=== PATIENT | male | born 1965 | race Caucasian/White ===

== ENCOUNTER 2017-12-12 00:56 | Emergency (ER) | payer MEDICAID ==
[~2017-12-12] VITALS: Ht 162.6 cm; Wt 121.3 kg
[~2017-12-12 00:56] MED LIST: ALBU18HF2 IH; BENZ-49 PO; CEPH-571 PO; CYCL-1 PO; HYDR-569 PO; IBUP-1986 PO; LISI10TA4 PO; NEOM10DR45 OT; TRIA10.8
[2017-12-12] MEDS ORDERED: proparacaine 0.5% ophthalmic drops 15ml EACHEYE ONE (01:45)
[2017-12-12] MEDS ORDERED: gentamicin ophthalmic ointment 1 APPLIC TUBE EACHEYE ONE (02:20)
[2017-12-12] MEDS ORDERED: HYDROcodone/acetaminophen 10/325mg tab PO ONE (02:20)
[2017-12-12] MEDS ORDERED: GENOO OP (02:25)
[2017-12-12] MEDS ORDERED: HYDR-565 PO (02:25)
[2017-12-12 02:34] VITALS: BP 139/83
== END 2017-12-12 02:35 | disposition home or self-care (01) ==
LOC: ER 00:56
DX: S05.02XA Injury of conjunctiva and corneal abrasion without foreign body, left eye, initial encounter (principal); H16.133 Photokeratitis, bilateral; I10 Essential (primary) hypertension; F17.200 Nicotine dependence, unspecified, uncomplicated; F12.10 Cannabis abuse, uncomplicated; F15.10 Other stimulant abuse, uncomplicated; Z79.899 Other long term (current) drug therapy; X58.XXXA Exposure to other specified factors, initial encounter; Y93.89 Activity, other specified; Y92.89 Other specified places as the place of occurrence of the external cause; Y99.0 Civilian activity done for income or pay
CPT/HCPCS: 99284

== ENCOUNTER 2018-04-18 10:43 | Emergency (ER) | payer MEDICAID ==
[~2018-04-18] VITALS: Ht 162.6 cm; Wt 131.8 kg
[~2018-04-18 10:43] MED LIST changes: +GENOO OP; +HYDR-4383 PO; -HYDR-569 PO
[2018-04-18 11:23] LABS: BASOPHILS % (AUTO) 0.1 % (0-1); EOSINOPHILS % (AUTO) 0.2 % (0-6); HEMATOCRIT 51.1 % (42.0-52.0); HEMOGLOBIN 17.3 g/dl (14.0-17.9); LYMPHOCYTES # (AUTO) 0.4 X10'3 (1.1-4.8); LYMPHOCYTES % (AUTO) 4.7 % (21-51); MEAN CORPUSCULAR HEMOGLOBIN 29.7 PG (27.0-31.0); MEAN CORPUSCULAR HGB CONC 33.9 % (33.0-36.5); MEAN CORPUSCULAR VOLUME 87.5 FL (78-98); MEAN PLATELET VOLUME 9.9 FL (7.4-10.4); MONOCYTES # (AUTO) 0.7 X10'3 (0-0.9); MONOCYTES % (AUTO) 9.8 % (2-12); NEUTROPHILS # (AUTO) 6.5 X10'3 (1.8-7.7); NEUTROPHILS % (AUTO) 85.2 % (42-75); PLATELET COUNT 136 X10'3 (140-440); RED BLOOD COUNT 5.84 X10'6 (4.70-6.10); WHITE BLOOD COUNT 7.6 X10'3 (4.5-11.0)
[2018-04-18 11:37] LABS: PARTIAL THROMBOPLASTIN TIME 31 SECONDS (22-32); PROTHROMBIN TIME 10.4 SECONDS (9.0-12.0)
[2018-04-18 11:39] LABS: ALANINE AMINOTRANSFERASE 65 U/L (12-78); ALBUMIN 3.7 G/DL (3.4-5.0); ALBUMIN/GLOBULIN RATIO 0.9 (1.1-1.5); ALKALINE PHOSPHATASE 81 IU/L (46-116); ANION GAP 10 (8-16); ASPARTATE AMINO TRANSFERASE 33 U/L (10-37); BILIRUBIN,TOTAL 0.6 MG/DL (0.1-1.0); BLOOD UREA NITROGEN 13 MG/DL (7-18); BUN/CREATININE RATIO 13.3 (5.4-32.0); CALCIUM 8.5 MG/DL (8.5-10.1); CHLORIDE 94 MMOL/L (99-107); CREATININE 0.98 MG/DL (0.60-1.10); GLUCOSE 115 MG/DL (70-104); POTASSIUM 4.3 MMOL/L (3.5-5.1); SODIUM 129 MMOL/L (135-145); TOTAL CARBON DIOXIDE 24.6 MMOL/L (24-32); TOTAL PROTEIN 7.9 G/DL (6.4-8.2); eGFR 81 ML/MIN
[2018-04-18 11:54] VITALS: BP 150/93
[2018-04-18] MEDS ORDERED: TAM75C PO (13:09)
[2018-04-18] MEDS ORDERED: HYDR-4353 PO (13:14)
[2018-04-18] MEDS ORDERED: HYDROcodone/acetaminophen 10/325mg tab PO ONE (13:15)
== END 2018-04-18 13:32 | disposition home or self-care (01) ==
LOC: ER 10:44
DX: B34.9 Viral infection, unspecified (principal); R50.9 Fever, unspecified; I10 Essential (primary) hypertension; F12.90 Cannabis use, unspecified, uncomplicated; F15.90 Other stimulant use, unspecified, uncomplicated; Z79.899 Other long term (current) drug therapy
CPT/HCPCS: 36415; 71045; 80053; 83880; 84484; 85025; 85610; 85730; 87040; 93005; 99284

== ENCOUNTER → 2018-05-07 | Emergency (ER) | payer MEDICAID ==
[~2018-05-07] VITALS: Ht 162.6 cm; Wt 118.5 kg
[~2018-05-07] MED LIST changes: +AZIT250T2 PO; +HYDR-4353 PO; +azithromycin 250mg tablet PO ONE; +levoFLOXACIN-Levaquin 750MG/D5 150 ML IV STA
[2018-05-07 21:52] LABS: BASOPHILS # (AUTO) 0.1 X10'3 (0-0.2); BASOPHILS % (AUTO) 0.7 % (0-1); EOSINOPHILS # (AUTO) 0.1 X10'3 (0-0.9); HEMATOCRIT 49.2 % (42.0-52.0); HEMOGLOBIN 16.3 g/dl (14.0-17.9); LYMPHOCYTES # (AUTO) 2.7 X10'3 (1.1-4.8); LYMPHOCYTES % (AUTO) 28.1 % (21-51); MEAN CORPUSCULAR HEMOGLOBIN 29.2 PG (27.0-31.0); MEAN CORPUSCULAR VOLUME 88.4 FL (78-98); MEAN PLATELET VOLUME 10.1 FL (7.4-10.4); MONOCYTES # (AUTO) 0.7 X10'3 (0-0.9); MONOCYTES % (AUTO) 7.6 % (2-12); NEUTROPHILS # (AUTO) 6.1 X10'3 (1.8-7.7); NEUTROPHILS % (AUTO) 62.6 % (42-75); PLATELET COUNT 197 X10'3 (140-440); RED BLOOD COUNT 5.56 X10'6 (4.70-6.10); RED CELL DISTRIBUTION WIDTH 14.1 % (11.5-14.5); WHITE BLOOD COUNT 9.7 X10'3 (4.5-11.0)
[2018-05-07 22:13] VITALS: BP 155/91
[2018-05-07 22:19] LABS: PARTIAL THROMBOPLASTIN TIME 28 SECONDS (22-32)
[2018-05-07 22:49] LABS: ALANINE AMINOTRANSFERASE 53 U/L (12-78); ALBUMIN 3.4 G/DL (3.4-5.0); ALBUMIN/GLOBULIN RATIO 0.8 (1.1-1.5); ALKALINE PHOSPHATASE 88 IU/L (46-116); ANION GAP 11 (8-16); ASPARTATE AMINO TRANSFERASE 24 U/L (10-37); BILIRUBIN,TOTAL 0.3 MG/DL (0.1-1.0); BLOOD UREA NITROGEN 20 MG/DL (7-18); BUN/CREATININE RATIO 21.1 (5.4-32.0); CALCIUM 8.5 MG/DL (8.5-10.1); CHLORIDE 103 MMOL/L (99-107); CREATININE 0.95 MG/DL (0.60-1.10); GLUCOSE 127 MG/DL (70-104); POTASSIUM 3.9 MMOL/L (3.5-5.1); SODIUM 140 MMOL/L (135-145); TOTAL CARBON DIOXIDE 25.6 MMOL/L (24-32); TOTAL PROTEIN 7.5 G/DL (6.4-8.2); eGFR 84 ML/MIN
[2018-05-07 22:54] LABS: MAGNESIUM 2.1 MG/DL (1.5-2.4)
== END | disposition left against medical advice (07) ==
LOC: ER 20:31
DX: R05 Cough (principal); I10 Essential (primary) hypertension; F12.90 Cannabis use, unspecified, uncomplicated; F15.90 Other stimulant use, unspecified, uncomplicated; F17.200 Nicotine dependence, unspecified, uncomplicated; Z79.899 Other long term (current) drug therapy
CPT/HCPCS: 36415; 71045; 80053; 83605; 83735; 83880; 84145; 84484; 85025; 85610; 85730; 87040; 93005; 99284

== ENCOUNTER 2018-06-18 12:29 | Emergency (ER) | payer MEDICAID ==
[~2018-06-18] VITALS: Ht 162.6 cm; Wt 120.0 kg
[~2018-06-18 12:29] MED LIST changes: -AZIT250T2 PO; -HYDR-4353 PO; -azithromycin 250mg tablet PO ONE; -levoFLOXACIN-Levaquin 750MG/D5 150 ML IV STA
[2018-06-18] MEDS ORDERED: HYDROmorphone inj. 0.5 MG/0.5 ML DISP.SYRIN IV ONE (13:05)
[2018-06-18] MEDS ORDERED: ondansetron/PF 4mg/2ml inj IV ONE (13:05)
[2018-06-18] MEDS ORDERED: LIDOcaine Viscous 15ml cup TP ONE (13:10)
[2018-06-18] MEDS ORDERED: normal saline 1000ML IV soln IVB ONE (13:20)
[2018-06-18] MEDS ORDERED: bacitracin 15gm ointment TP ONE (13:30)
[2018-06-18] MEDS ORDERED: ketorolac trometh. 30mg/ml inj. IV ONE (13:30)
[2018-06-18 13:34] LABS: BASOPHILS # (AUTO) 0.1 X10'3 (0-0.2); BASOPHILS % (AUTO) 0.7 % (0-1); EOSINOPHILS # (AUTO) 0.1 X10'3 (0-0.9); EOSINOPHILS % (AUTO) 1.4 % (0-6); HEMATOCRIT 48.4 % (42.0-52.0); HEMOGLOBIN 16.1 g/dl (14.0-17.9); LYMPHOCYTES # (AUTO) 2.4 X10'3 (1.1-4.8); LYMPHOCYTES % (AUTO) 23.5 % (21-51); MEAN CORPUSCULAR HEMOGLOBIN 29.6 PG (27.0-31.0); MEAN CORPUSCULAR HGB CONC 33.2 g/dL (33.0-36.5); MEAN CORPUSCULAR VOLUME 88.9 FL (78-98); MEAN PLATELET VOLUME 9.7 FL (7.4-10.4); MONOCYTES # (AUTO) 0.9 X10'3 (0-0.9); MONOCYTES % (AUTO) 8.3 % (2-12); NEUTROPHILS # (AUTO) 6.8 X10'3 (1.8-7.7); NEUTROPHILS % (AUTO) 66.1 % (42-75); PLATELET COUNT 162 X10'3 (140-440); RED BLOOD COUNT 5.44 X10'6 (4.70-6.10); RED CELL DISTRIBUTION WIDTH 14.4 % (11.5-14.5); WHITE BLOOD COUNT 10.3 X10'3 (4.5-11.0)
[2018-06-18] MEDS ORDERED: normal saline 1000ml 1,000 ML IV ONE (13:35)
[2018-06-18 13:45] VITALS: BP 157/72
[2018-06-18 13:51] LABS: ALANINE AMINOTRANSFERASE 47 U/L (12-78); ALBUMIN 3.3 G/DL (3.4-5.0); ALBUMIN/GLOBULIN RATIO 0.9 (1.1-1.5); ALKALINE PHOSPHATASE 104 IU/L (46-116); ANION GAP 10 (8-16); ASPARTATE AMINO TRANSFERASE 26 U/L (10-37); BILIRUBIN,TOTAL 0.2 MG/DL (0.1-1.0); BLOOD UREA NITROGEN 15 MG/DL (7-18); CALCIUM 8.4 MG/DL (8.5-10.1); CHLORIDE 105 MMOL/L (99-107); CREATININE 0.88 MG/DL (0.60-1.10); GLUCOSE 96 MG/DL (70-104); POTASSIUM 4.3 MMOL/L (3.5-5.1); SODIUM 140 MMOL/L (135-145); TOTAL CARBON DIOXIDE 25.2 MMOL/L (24-32); eGFR > 90 ML/MIN
[2018-06-18] MEDS ORDERED: HYDR-3965 PO (13:59)
[2018-06-18] MEDS ORDERED: BACI28.42 TOP (13:59)
== END 2018-06-18 14:29 | disposition home or self-care (01) ==
LOC: ER 12:30
DX: T23.231A Burn of second degree of multiple right fingers (nail), not including thumb, initial encounter (principal); T20.06XA Burn of unspecified degree of forehead and cheek, initial encounter; S61.412A Laceration without foreign body of left hand, initial encounter; I10 Essential (primary) hypertension; F12.90 Cannabis use, unspecified, uncomplicated; F15.90 Other stimulant use, unspecified, uncomplicated; Z79.899 Other long term (current) drug therapy; X08.8XXA Exposure to other specified smoke, fire and flames, initial encounter; Y93.89 Activity, other specified; Y92.89 Other specified places as the place of occurrence of the external cause; Y99.9 Unspecified external cause status
CPT/HCPCS: 16020; 36415; 71045; 80053; 83735; 85025; 93005; 96374; 96375; 99284; J1170; J1885; J2405; J7030

== ENCOUNTER 2019-06-23 13:17 | Emergency (ER) | payer MEDICAID ==
[~2019-06-23 13:17] MED LIST changes: +BACI28.42 TOP
== END 2019-06-23 14:59 | disposition left against medical advice (07) ==
LOC: ER 13:18
DX: R06.02 Shortness of breath (principal); Z53.21 Procedure and treatment not carried out due to patient leaving prior to being seen by health care provider
CPT/HCPCS: 93005

== ENCOUNTER 2019-07-03 01:51 | Emergency (ER) | payer MEDICAID ==
[~2019-07-03] VITALS: Ht 162.6 cm; Wt 122.7 kg
[2019-07-03 01:56] VITALS: BP 156/109
[2019-07-03] MEDS ORDERED: azithromycin 250mg tablet PO ONE (02:20)
[2019-07-03] MEDS ORDERED: AZIT-63 PO (02:37)
== END 2019-07-03 02:59 | disposition home or self-care (01) ==
LOC: ER 01:51
DX: J06.9 Acute upper respiratory infection, unspecified (principal); I10 Essential (primary) hypertension; F12.90 Cannabis use, unspecified, uncomplicated; F15.90 Other stimulant use, unspecified, uncomplicated; Z79.2 Long term (current) use of antibiotics; Z79.899 Other long term (current) drug therapy
CPT/HCPCS: 93005; 99283

== ENCOUNTER 2019-07-14 02:45 | Emergency (ER) | payer MEDICAID ==
[~2019-07-14] VITALS: Ht 162.6 cm; Wt 12.3 kg
[~2019-07-14 02:45] MED LIST changes: +AZIT-63 PO
[2019-07-14] MEDS ORDERED: PRED20TA PO (03:04)
[2019-07-14] MEDS ORDERED: DOXY-1 PO (03:04)
[2019-07-14] MEDS ORDERED: ALBU8.5H8 INH (03:04)
[2019-07-14 03:11] VITALS: BP 125/94
== END 2019-07-14 03:15 | disposition home or self-care (01) ==
LOC: ER 02:47
DX: J98.8 Other specified respiratory disorders (principal); I10 Essential (primary) hypertension; F12.90 Cannabis use, unspecified, uncomplicated; F15.90 Other stimulant use, unspecified, uncomplicated; F17.200 Nicotine dependence, unspecified, uncomplicated; Z79.899 Other long term (current) drug therapy
CPT/HCPCS: 99283

== ENCOUNTER 2019-09-01 02:01 | Emergency (ER) | payer MEDICAID ==
[~2019-09-01] VITALS: Ht 160 cm; Wt 118.2 kg
[~2019-09-01 02:01] MED LIST changes: +ALBU8.5H8 INH; -AZIT-63 PO
[2019-09-01 02:08] VITALS: BP 183/113
[2019-09-01] MEDS ORDERED: famotidine 20mg tablet PO ONE (03:05)
[2019-09-01] MEDS ORDERED: dexamethasone 4mg tablet PO ONE (03:05)
[2019-09-01] MEDS ORDERED: PRED20TA PO (03:17)
== END 2019-09-01 04:22 | disposition home or self-care (01) ==
LOC: ER 02:02
DX: L98.8 Other specified disorders of the skin and subcutaneous tissue (principal); L29.9 Pruritus, unspecified; F12.90 Cannabis use, unspecified, uncomplicated; F15.90 Other stimulant use, unspecified, uncomplicated; I10 Essential (primary) hypertension; Z79.899 Other long term (current) drug therapy
CPT/HCPCS: 99283

== ENCOUNTER 2020-05-10 18:07 | Emergency (ER) | payer MEDICAID ==
[~2020-05-10] VITALS: Ht 160 cm; Wt 109.1 kg
[2020-05-10] MEDS ORDERED: CEPH-572 PO (18:41)
[2020-05-10] MEDS ORDERED: SULF1TAB49 PO (18:41)
== END 2020-05-10 19:08 | disposition home or self-care (01) ==
LOC: ER 18:08
DX: J06.9 Acute upper respiratory infection, unspecified (principal); Z20.828 Contact with and (suspected) exposure to other viral communicable diseases; L02.413 Cutaneous abscess of right upper limb; I10 Essential (primary) hypertension; J45.909 Unspecified asthma, uncomplicated; F17.200 Nicotine dependence, unspecified, uncomplicated; F12.90 Cannabis use, unspecified, uncomplicated; F15.90 Other stimulant use, unspecified, uncomplicated; Z79.2 Long term (current) use of antibiotics; Z79.899 Other long term (current) drug therapy
CPT/HCPCS: 36415; 87635; 99283

== ENCOUNTER 2021-09-10 13:46 | Inpatient (IN) | payer MEDICAID ==
[~2021-09-10] VITALS: Ht 160 cm; Wt 115.9 kg
[~2021-09-10 13:46] MED LIST changes: +ALBU8.5H17 INH; -ALBU8.5H8 INH; +LISI10TA27 PO; -LISI10TA4 PO
[2021-09-10] MEDS ORDERED: ipratropium/albuterol 3ml nebule NEB ONE (14:15)
[2021-09-10] MEDS ORDERED: vancomycin/NS 1 GM ADD-VANTAGE 250 ML IV ONE (14:15)
[2021-09-10] MEDS ORDERED: normal saline 1000ML IV soln IVB ONE (14:15)
[2021-09-10] MEDS ORDERED: piperacillin/tazo 3.375gm/50ml 50 ML IV ONE (14:15)
[2021-09-10 14:49] LABS: BASOPHILS % (AUTO) 0.2 % (0-1); EOSINOPHILS % (AUTO) 0.1 % (0-6); HEMATOCRIT 50.1 % (42.0-52.0); HEMOGLOBIN 16.9 g/dl (14.0-17.9); LYMPHOCYTES % (AUTO) 6.7 % (21-51); MEAN CORPUSCULAR HEMOGLOBIN 29.7 PG (27.0-31.0); MEAN CORPUSCULAR HGB CONC 33.7 g/dL (33.0-36.5); MEAN PLATELET VOLUME 10.1 FL (7.4-10.4); MONOCYTES # (AUTO) 1.8 X10'3 (0-0.9); NEUTROPHILS # (AUTO) 12.5 X10'3 (1.8-7.7); PLATELET COUNT 134 X10'3 (140-440); RED BLOOD COUNT 5.69 X10'6 (4.70-6.10); RED CELL DISTRIBUTION WIDTH 14.1 % (11.5-14.5); WHITE BLOOD COUNT 15.4 X10'3 (4.5-11.0)
[2021-09-10 14:59] LABS: ABG BASE EXCESS 3.1 mmol/L (-2.0-2.0); ABG HCO3 25.5 mmol/L (22.0-26.0); ABG OXYGEN SATURATION 94.2 % (94-97); ABG PO2 (T) 62.7 mmHg (75.0-100.0); ALLEN'S TEST POSITIVE; FCOHb 1.4 % (0.0-3.9); FLOW 4 L/min; FMetHb 0.1 % (0.0-1.5); FO2Hb 92.8 % (94-97); TOTAL HEMOGLOBIN 16.9 G/dl (14.0-18.0)
--- NOTE | 2021-09-10 15:00 | NUR ---
PATIENT GOT UP,WANTED TO LEAVE THE HOSPITAL.
[2021-09-10 15:08] LABS: ALANINE AMINOTRANSFERASE 34 U/L (12-78); ALBUMIN 2.5 G/DL (3.4-5.0); ALBUMIN/GLOBULIN RATIO 0.5 (1.1-1.5); ALKALINE PHOSPHATASE 74 IU/L (46-116); ANION GAP 7 (8-16); ASPARTATE AMINO TRANSFERASE 34 U/L (10-37); BILIRUBIN,TOTAL 0.8 MG/DL (0.1-1.0); BLOOD UREA NITROGEN 18 MG/DL (7-18); CHLORIDE 87 MMOL/L (99-107); POTASSIUM 4.9 MMOL/L (3.5-5.1); TOTAL CARBON DIOXIDE 25.2 MMOL/L (24-32); TOTAL PROTEIN 7.8 G/DL (6.4-8.2); eGFR 63 ML/MIN
[2021-09-10 15:11] LABS: APTT 27 SECONDS (22-32)
[2021-09-10 15:16] LABS: GLUCOSE 491 MG/DL (70-104); SODIUM 119 MMOL/L (135-145)
[2021-09-10] MEDS ORDERED: azithromycin/NS 500mg/250ml 250 ML IV ONE (15:30)
--- NOTE | 2021-09-10 15:34 | NUR ---
PATIENT TO CT.
--- NOTE | 2021-09-10 15:49 | NUR ---
PT BACK FROM CT.
[2021-09-10] MEDS ORDERED: insulin Lispro (HumaLOG) vial - multi-dose SQ SCH (16:40)
[2021-09-10] MEDS ORDERED: insulin regular, human 10 units/0.1 ml syringe SQ ONE ×2 (16:40→19:45)
[2021-09-10] MEDS ORDERED: NO HOME MEDS (17:00)
--- NOTE | 2021-09-10 17:00 | NUR ---
patient anxious,no prn per Dr. Agrawal.
--- NOTE | 2021-09-10 17:34 | NUR ---
PATIENT VOIDED ON THE BED.BEDDINGS CHANGED.
[2021-09-10] MEDS ORDERED: acetaminophen 325mg tablet PO PRN (18:35)
[2021-09-10] MEDS ORDERED: ipratropium/albuterol 3ml nebule NEB PRN (18:35)
[2021-09-10] MEDS ORDERED: potassium CL 10mEq/100ml bag 100 ML IV PRN (18:35)
[2021-09-10] MEDS ORDERED: mag hydrox/Alum hydrox/simeth 30ml oral suspension PO PRN (18:35)
[2021-09-10] MEDS ORDERED: albuterol 2.5 MG/3 ML nebule NEB PRN (18:35)
[2021-09-10] MEDS ORDERED: POTASSIUM BICARB 20meq eff tab 20 MEQ TABLET.EFF PO PRN ×2 (18:35)
[2021-09-10] MEDS ORDERED: magnesium 2GM in 50ml NS 50 ML IV PRN (18:35)
[2021-09-10] MEDS ORDERED: MESSAGE TO PHARMACY PO ONE (18:35)
[2021-09-10] MEDS ORDERED: glucagon, human recombinant 1mg kit SUBCUT PRN (18:35)
[2021-09-10] MEDS ORDERED: dextrose 50%-water 50ml dispensing syringe IV PRN ×2 (18:35)
[2021-09-10] MEDS ORDERED: PERFLUTREN PROTEIN-A MICROSPHR (Optison) 0.22 MG/ML 3ML VIAL IV ONE (18:35)
[2021-09-10] MEDS ORDERED: magnesium 4gm in 100ml NS 100 ML IV PRN (18:35)
[2021-09-10] MEDS ORDERED: HYDROcodone/acetaminophen 10/325mg tab PO PRN (18:35)
[2021-09-10] MEDS ORDERED: ondansetron/PF 4mg/2ml inj IV PRN (18:35)
[2021-09-10] MEDS ORDERED: HYDROcodone/acetaminophen 5mg/325mg tablet PO PRN (18:35)
[2021-09-10] MEDS ORDERED: DEXTROSE 15 GM of carb/4 tabs (each vial/BOTTLE has 4 tablets) PO PRN ×2 (18:35)
[2021-09-10 19:01] LABS: HEMOGLOBIN A1C 10.8 % (4.5-6.2)
[2021-09-10 19:21] LABS: ALBUMIN 2.2 G/DL (3.4-5.0); ANION GAP 4 (8-16); BLOOD UREA NITROGEN 19 MG/DL (7-18); BUN/CREATININE RATIO 17.3 (5.4-32.0); CALCIUM 7.7 MG/DL (8.5-10.1); CHLORIDE 91 MMOL/L (99-107); GLUCOSE 388 MG/DL (70-104); POTASSIUM 4.6 MMOL/L (3.5-5.1); SODIUM 121 MMOL/L (135-145); TOTAL CARBON DIOXIDE 26.1 MMOL/L (24-32); eGFR 70 ML/MIN
[2021-09-10] MEDS: docusate sod 100mg capsule PO SCH (20:00)
[2021-09-10] MEDS: K and/or MAG REPLACEMENT MC SCH (20:00)
[2021-09-10] MEDS: nicotine 21mg patch - 24 hr TD SCH (20:18)
[2021-09-10] MEDS: normal saline 1000ml 1,000 ML IV SCH (20:21)
[2021-09-10] MEDS: methylPREDNISolone sod succ 125mg/2ml vial IV SCH (20:37)
[2021-09-10] MEDS: enoxaparin 40mg/0.4ml syringe SQ SCH (21:04)
--- NOTE | 2021-09-10 21:40 | NUR ---
PT GIVEN TYLENOL FOR 102.2 TEMP. JUST RECHECKED TEMP AFTER 30MIN, STILL 102.2. FLOOR NURSE NOTIFIED.
--- NOTE | 2021-09-10 22:00 | NUR ---
Patient in room PCU 3015. I have received report from pete GONZALEZ from ED and had the opportunity to ask questions and assume patient care.
[2021-09-10 22:10] VITALS: BP 110/72
[2021-09-10] MEDS: insulin glargine (Lantus) pen - multi-dose SQ SCH (22:57)
[2021-09-10 23:00] VITALS: BP 116/60
[2021-09-10] MEDS: insulin Lispro (HumaLOG) vial - multi-dose SQ SCH (23:00)
[2021-09-11] VITALS (10 sets, daily range): BP systolic 109–139; BP diastolic 52–82
[2021-09-11] MEDS: piperacillin/tazo 4.5gm/100ml 100 ML IV SCH ×3 (00:11→16:00)
[2021-09-11] MEDS: methylPREDNISolone sod succ 125mg/2ml vial IV SCH ×4 (00:11→22:58)
[2021-09-11] MEDS ORDERED: diltiazem 5mg/ml 5ml inj. IV ONE ×2 (02:25→03:25)
[2021-09-11] MEDS ORDERED: diltiazem 30mg tablet PO ONE (03:25)
[2021-09-11] MEDS: vancomycin/NS 1 GM ADD-VANTAGE 250 ML IV SCH ×2 (03:54→22:31)
[2021-09-11] MEDS: normal saline 1000ml 1,000 ML IV SCH ×2 (04:35→15:28)
--- NOTE | 2021-09-11 04:51 | NUR ---
Received pt from the ER at 2210. Kari LEWIS received report from ER nurse. Patient is diaphoretic, temp 99.9. Sugar is 327. BP 136/64 HR 98.
--- NOTE | 2021-09-11 05:14 | NUR ---
Called Dr Hayes regarding bloody mucus, Pt in Afib with RVR ranging from 150-190s blood pressures q1 hr 117/62
--- NOTE | 2021-09-11 05:17 | NUR ---
Discussed with Dr harris regarding pt sustaining rhythm a fib w/ RVR got second dose of IV Cardizem 10 mg and gave PO Cardizem 30 mg one time dose. Patient still in AFib with rate in 150s-170.
[2021-09-11] MEDS ORDERED: metoprolol succinate 25mg (24-HOUR) SR. Tablet PO ONE (05:25)
--- NOTE | 2021-09-11 05:38 | NUR ---
Called Dr. harris again about the patient HR ranging from 150-170s when patient sat up it spiked to 190s. Abigail ordered 25 mg Metoprol. Patient is alert and oriented. Still diaphoretic, extremities are warm to the touch. Temp 97.7. Bp 116/65. No more bloody sputum, mucus membranes dry. Patient on tele and coutinuous o2 been on 8L sense arriving to the floor stats 90-94. q30 min vitals. Patient does state he feels "very bad". Addendum: 09/11/21 at 0638 by Lena Lebron RN Resp 25-35
--- NOTE | 2021-09-11 06:48 | NUR ---
Problems reprioritized. Patient report given, questions answered & plan of care reviewed with Lena GONZALEZ.
[2021-09-11] MEDS: K and/or MAG REPLACEMENT MC SCH ×2 (08:00→20:00)
[2021-09-11] MEDS: docusate sod 100mg capsule PO SCH ×2 (08:00→20:24)
[2021-09-11 08:18] LABS: BASOPHILS % (AUTO) 0.1 % (0-1); EOSINOPHILS % (AUTO) 0 % (0-6); HEMATOCRIT 48.3 % (42.0-52.0); HEMOGLOBIN 16.2 g/dl (14.0-17.9); LYMPHOCYTES # (AUTO) 0.9 X10'3 (1.1-4.8); LYMPHOCYTES % (AUTO) 6.1 % (21-51); MEAN CORPUSCULAR HEMOGLOBIN 29.6 PG (27.0-31.0); MEAN CORPUSCULAR HGB CONC 33.5 g/dL (33.0-36.5); MEAN CORPUSCULAR VOLUME 88.4 FL (78-98); MEAN PLATELET VOLUME 11.1 FL (7.4-10.4); MONOCYTES # (AUTO) 0.4 X10'3 (0-0.9); MONOCYTES % (AUTO) 2.7 % (2-12); NEUTROPHILS # (AUTO) 13.2 X10'3 (1.8-7.7); NEUTROPHILS % (AUTO) 91.1 % (42-75); PLATELET COUNT 133 X10'3 (140-440); RED BLOOD COUNT 5.46 X10'6 (4.70-6.10); RED CELL DISTRIBUTION WIDTH 13.6 % (11.5-14.5); WHITE BLOOD COUNT 14.5 X10'3 (4.5-11.0)
[2021-09-11] MEDS: nicotine 21mg patch - 24 hr TD SCH (08:58)
--- NOTE | 2021-09-11 09:44 | NUR ---
Diabetes consult: Pt admitted w/ Sepsis, PNA, and COPD exacerbation per EMR. Currently on Clear liquid diet pending PO, recommend advancing to Carb control diet. Pt w/ new onset DM per MD note, A1c 10.8. Provided pt w/ written and verbal DM ed w/ RD contact info. Limited nutrition interventions at this time, will continue to monitor. Recs: 1. Advance to Carb control diet 2. Monitor need for additional protein 3. Bowel care per rx 4. Scaled wts Addendum: 09/11/21 at [address] Amended: Links added.
[2021-09-11] MEDS ORDERED: metoprolol tartrate 1mg/ml inj IV ONE (09:45)
[2021-09-11] MEDS ORDERED: metoprolol tartrate 50mg tablet PO ONE (10:15)
[2021-09-11 11:41] LABS: ALANINE AMINOTRANSFERASE 35 U/L (12-78); ALBUMIN/GLOBULIN RATIO 0.4 (1.1-1.5); ALKALINE PHOSPHATASE 67 IU/L (46-116); ANION GAP 11 (8-16); ASPARTATE AMINO TRANSFERASE 41 U/L (10-37); BILIRUBIN,TOTAL 0.6 MG/DL (0.1-1.0); BLOOD UREA NITROGEN 26 MG/DL (7-18); BUN/CREATININE RATIO 23.9 (5.4-32.0); CALCIUM 7.6 MG/DL (8.5-10.1); CHLORIDE 90 MMOL/L (99-107); CHOL/HDL RATIO 12.6 (0.00-4.99); CHOLESTEROL 126 MG/DL (0-200); CREATININE 1.09 MG/DL (0.60-1.10); GLUCOSE 427 MG/DL (70-104); HDL CHOLESTEROL 10 MG/DL (35-60); LDL CHOLESTEROL 64 MG/DL (50-100); MAGNESIUM 2.4 MG/DL (1.5-2.4); POTASSIUM 4.7 MMOL/L (3.5-5.1); SODIUM 123 MMOL/L (135-145); TOTAL CARBON DIOXIDE 21.8 MMOL/L (24-32); TOTAL PROTEIN 6.8 G/DL (6.4-8.2); TRIGLYCERIDES 189 MG/DL (20-135); eGFR 70 ML/MIN
[2021-09-11] MEDS: amiodarone/D5 360MG/200ML BAG 200 ML IV SCH ×3 (11:45→22:57)
[2021-09-11] MEDS ORDERED: amiodarone 150mg/dext, iso-os 100 ML IV ONE ×2 (11:45→19:25)
[2021-09-11] MEDS: insulin Lispro (HumaLOG) vial - multi-dose SQ SCH ×2 (14:34→19:39)
[2021-09-11] MEDS: enoxaparin 40mg/0.4ml syringe SQ SCH (20:24)
[2021-09-11] MEDS: insulin glargine (Lantus) pen - multi-dose SQ SCH (20:34)
[2021-09-11] MEDS ORDERED: amiodarone 200mg tablet PO ONE (21:50)
--- NOTE | 2021-09-11 22:59 | NUR ---
0000 dose of solu-medrol not given because 1600 was not given until 2300. 1600 dose of zosyn not given due to lack of iv access.
[2021-09-11] MEDS ORDERED: vancomycin/NS 1 GM ADD-VANTAGE 250 ML IV SCH (23:05)
--- NOTE | 2021-09-12 00:31 | NUR ---
Paged Dr. Hayes at 0030 regarding medication questions. Patient has one line and unable to obtain second. Patient is afib rvr and in need of amio drip but also has positive blood cultures and needs iv antibx. Per physician, given iv antibx first wait to give amio. patient did receive the 150mg bolus before loss of access and 200 mg p.o amiodorone.
[2021-09-12] MEDS: piperacillin/tazo 4.5gm/100ml 100 ML IV SCH ×4 (00:36→23:40)
[2021-09-12] MEDS: normal saline 1000ml 1,000 ML IV SCH ×3 (00:41→21:28)
[2021-09-12 02:00] VITALS: BP 107/80
[2021-09-12] MEDS: amiodarone/D5 360MG/200ML BAG 200 ML IV SCH ×4 (05:57→23:52)
--- NOTE | 2021-09-12 06:30 | NUR ---
Upon bedside report this morning, patient is very emotional and states he has to leave the hospital. Says his mother is 83 and has dementia. She lives with him and he takes care of her. He has had a family friend taking care of her since he was admitted, but that person can no longer take care of her as of today (per phone conversation) Myself and his night nurse Ana told him how unsafe it is to leave, and that he needs to take care of himself first, or he will not be able to take care of his mom. Patient is emotional and states that he understands he is very sick and should not leave, but that he has no other choice. paged - waiting for call back.
--- NOTE | 2021-09-12 06:38 | NUR ---
PAGER ID: [phone] MESSAGE: Alcides Holly: Patient is trying to leave AMA - Says his mom has dementia and he has no one to take care of her. Heart rate is in the 150s [facility] 5408
--- NOTE | 2021-09-12 06:38 | NUR ---
PICC Nurse paged: [phone] Alcides Holly: Patient needs a PICC or possible extended line. Multiple nurses tried to get IV even with vein ultrasound and were not successful. Need more access for multiple IV meds
--- NOTE | 2021-09-12 06:38 | NUR ---
Patient in room PCU 3015. I have received report from Ana GONZALEZ and had the opportunity to ask questions and assume patient care.
[2021-09-12 07:00] VITALS: BP 125/89
--- NOTE | 2021-09-12 07:12 | NUR ---
[employer] consult ordered per protocol (charge nurse agreed) STAT.
[2021-09-12] MEDS: K and/or MAG REPLACEMENT MC SCH ×2 (08:00→20:00)
[2021-09-12 09:00] LABS: BASOPHILS % (AUTO) 0.2 % (0-1); EOSINOPHILS % (AUTO) 0.1 % (0-6); HEMATOCRIT 47.7 % (42.0-52.0); HEMOGLOBIN 15.7 g/dl (14.0-17.9); LYMPHOCYTES # (AUTO) 1.3 X10'3 (1.1-4.8); LYMPHOCYTES % (AUTO) 7.3 % (21-51); MEAN CORPUSCULAR HEMOGLOBIN 29.4 PG (27.0-31.0); MEAN CORPUSCULAR VOLUME 89.1 FL (78-98); MEAN PLATELET VOLUME 11.8 FL (7.4-10.4); MONOCYTES # (AUTO) 0.8 X10'3 (0-0.9); MONOCYTES % (AUTO) 4.3 % (2-12); NEUTROPHILS # (AUTO) 16.1 X10'3 (1.8-7.7); NEUTROPHILS % (AUTO) 88.1 % (42-75); PLATELET COUNT 152 X10'3 (140-440); RED BLOOD COUNT 5.35 X10'6 (4.70-6.10); RED CELL DISTRIBUTION WIDTH 14.1 % (11.5-14.5); WHITE BLOOD COUNT 18.3 X10'3 (4.5-11.0)
[2021-09-12] MEDS: nicotine 21mg patch - 24 hr TD SCH (09:04)
[2021-09-12] MEDS: docusate sod 100mg capsule PO SCH ×2 (09:04→21:27)
[2021-09-12] MEDS: methylPREDNISolone sod succ 125mg/2ml vial IV SCH ×3 (09:05→23:40)
[2021-09-12 09:46] LABS: ALANINE AMINOTRANSFERASE 37 U/L (12-78); ALBUMIN 1.8 G/DL (3.4-5.0); ALBUMIN/GLOBULIN RATIO 0.4 (1.1-1.5); ALKALINE PHOSPHATASE 74 IU/L (46-116); ANION GAP 8 (8-16); BILIRUBIN,TOTAL 0.6 MG/DL (0.1-1.0); BLOOD UREA NITROGEN 27 MG/DL (7-18); BUN/CREATININE RATIO 29.3 (5.4-32.0); CALCIUM 7.7 MG/DL (8.5-10.1); CHLORIDE 93 MMOL/L (99-107); CREATININE 0.92 MG/DL (0.60-1.10); GLUCOSE 431 MG/DL (70-104); MAGNESIUM 2.2 MG/DL (1.5-2.4); SODIUM 124 MMOL/L (135-145); TOTAL CARBON DIOXIDE 23.4 MMOL/L (24-32); TOTAL PROTEIN 6.5 G/DL (6.4-8.2); eGFR 86 ML/MIN
[2021-09-12 09:48] LABS: ASPARTATE AMINO TRANSFERASE 50 U/L (10-37)
[2021-09-12] MEDS ORDERED: digoxin 250mcg/ml 2ml ampule IV ONE ×2 (10:05→17:00)
--- NOTE | 2021-09-12 10:15 | NUR ---
Dr dumont at bedside. Verbal order as follows: Coreg 12.5mg PO BID, Digoxin 0.25mg IV now and repeat in 6 hours (1935), Amiodorone 200mg PO BID x 2 weeks. Orders put in via RN
[2021-09-12] MEDS: insulin Lispro (HumaLOG) vial - multi-dose SQ SCH ×4 (10:46→21:17)
[2021-09-12] MEDS: amiodarone 200mg tablet PO SCH ×2 (10:57→21:27)
[2021-09-12 11:00] VITALS: BP 80/59
[2021-09-12] MEDS ORDERED: ondansetron 4mg rapidly disintigrating tab PO PRN (11:25)
[2021-09-12] MEDS ORDERED: metoprolol tartrate 1mg/ml inj IV STA (14:49)
[2021-09-12 15:00] VITALS: BP 130/69
[2021-09-12] MEDS ORDERED: MESSAGE TO NURSING IV ONE (15:30)
[2021-09-12 18:00] VITALS: BP 148/96
[2021-09-12] MEDS ORDERED: carVEDilol 12.5mg tablet PO ONE (18:55)
[2021-09-12] MEDS ORDERED: carVEDilol 12.5mg tablet PO SCH (20:00)
[2021-09-12] MEDS: insulin glargine (Lantus) pen - multi-dose SQ SCH (21:17)
[2021-09-12] MEDS: enoxaparin 40mg/0.4ml syringe SQ SCH (21:27)
[2021-09-12] MEDS: apixaban 5mg tablet PO SCH (21:28)
[2021-09-12 22:00] VITALS: BP 130/74
[2021-09-12] MEDS ORDERED: VANCOmycin 1250MG/NS 250ml Bag 250 ML IV SCH (23:00)
[2021-09-12] MEDS: carVEDilol 12.5mg tablet PO SCH (23:40)
[2021-09-13 02:22] VITALS: BP 91/70
[2021-09-13 04:09] LABS: BASOPHILS % (AUTO) 0.1 % (0-1); EOSINOPHILS % (AUTO) 0.1 % (0-6); HEMATOCRIT 41.6 % (42.0-52.0); HEMOGLOBIN 13.7 g/dl (14.0-17.9); LYMPHOCYTES # (AUTO) 1.3 X10'3 (1.1-4.8); MEAN CORPUSCULAR HEMOGLOBIN 28.9 PG (27.0-31.0); MEAN CORPUSCULAR VOLUME 87.4 FL (78-98); MEAN PLATELET VOLUME 10.7 FL (7.4-10.4); MONOCYTES # (AUTO) 0.8 X10'3 (0-0.9); MONOCYTES % (AUTO) 4.9 % (2-12); NEUTROPHILS # (AUTO) 14.1 X10'3 (1.8-7.7); NEUTROPHILS % (AUTO) 86.9 % (42-75); PLATELET COUNT 177 X10'3 (140-440); RED BLOOD COUNT 4.76 X10'6 (4.70-6.10); RED CELL DISTRIBUTION WIDTH 14.3 % (11.5-14.5); WHITE BLOOD COUNT 16.2 X10'3 (4.5-11.0)
[2021-09-13 04:34] LABS: ALANINE AMINOTRANSFERASE 40 U/L (12-78); ALBUMIN 1.7 G/DL (3.4-5.0); ALBUMIN/GLOBULIN RATIO 0.4 (1.1-1.5); ALKALINE PHOSPHATASE 74 IU/L (46-116); ANION GAP 4 (8-16); BILIRUBIN,TOTAL 0.5 MG/DL (0.1-1.0); BLOOD UREA NITROGEN 27 MG/DL (7-18); CALCIUM 7.4 MG/DL (8.5-10.1); CHLORIDE 102 MMOL/L (99-107); GLUCOSE 122 MG/DL (70-104); SODIUM 133 MMOL/L (135-145); TOTAL PROTEIN 5.6 G/DL (6.4-8.2); eGFR 88 ML/MIN
[2021-09-13 04:39] LABS: ASPARTATE AMINO TRANSFERASE 45 U/L (10-37); POTASSIUM 4.6 MMOL/L (3.5-5.1)
[2021-09-13 05:07] LABS: LARGE PLATELETS FEW; PLATELET ESTIMATE NORMAL
[2021-09-13 06:00] VITALS: BP 92/75
[2021-09-13 07:00] VITALS: BP 88/62
[2021-09-13] MEDS: K and/or MAG REPLACEMENT MC SCH (08:00)
[2021-09-13] MEDS: apixaban 5mg tablet PO SCH (08:41)
[2021-09-13] MEDS: piperacillin/tazo 4.5gm/100ml 100 ML IV SCH (08:41)
[2021-09-13] MEDS: methylPREDNISolone sod succ 125mg/2ml vial IV SCH (08:41)
[2021-09-13] MEDS: docusate sod 100mg capsule PO SCH (08:41)
[2021-09-13] MEDS: amiodarone 200mg tablet PO SCH (08:41)
[2021-09-13] MEDS: carVEDilol 12.5mg tablet PO SCH (08:42)
[2021-09-13] MEDS: nicotine 21mg patch - 24 hr TD SCH (08:43)
[2021-09-13] MEDS: insulin Lispro (HumaLOG) vial - multi-dose SQ SCH (09:04)
--- NOTE | 2021-09-13 09:34 | NUR ---
PAGER ID: [phone] MESSAGE: [phone] Alcides Holly: Patients Lalo recinos is about done. Do you want me to start another at the 0.5mg/min? Didn't know what the plan was. Thanks! Malika SCHULTZ
[2021-09-13 11:00] VITALS: BP 107/61
[2021-09-13] MEDS ORDERED: NICO-687 TD (13:59)
[2021-09-13] MEDS ORDERED: ATOR20TA66 PO (14:00)
[2021-09-13] MEDS ORDERED: ALBU8.5H17 INH (14:00)
[2021-09-13] MEDS ORDERED: INSU100I31 SQ (14:00)
[2021-09-13] MEDS ORDERED: PRED20TA PO (14:00)
[2021-09-13] MEDS ORDERED: APIX5TAB3 PO (14:00)
[2021-09-13] MEDS ORDERED: NEED-136 (14:00)
[2021-09-13] MEDS ORDERED: AMOX-580 PO (14:00)
[2021-09-13] MEDS ORDERED: AMIO200T67 PO (14:00)
[2021-09-13] MEDS ORDERED: CARV-50 PO (14:00)
--- NOTE | 2021-09-13 18:58 | NUR ---
Discharge instructions reviewed and questions answered. Education given on the importance of checking blood sugar, and patient was walked through how to take his blood sugar. IVs removed from right upper arm and left AC, catheters intact. Patient pushed down to lobby in wheel chair and [facility]
[2021-09-14] MEDS ORDERED: MESSAGE TO NURSING IV ONE (10:30)
== END 2021-09-13 15:00 | disposition home or self-care (01) | DRG 720 ==
LOC: ER 13:47 → ED HOLD 18:42 → UNDOADMIN 18:42 → PCU 3S 22:10
PROVIDERS: ADMIT Family Medicine; ATTEND Family Medicine
PROC: 5A0935A Assistance with Respiratory Ventilation, Less than 24 Consecutive Hours, High Flow/Velocity Cannula (ICD-10-PCS; principal; 2021-09-10)
PROC: 5A0935A Assistance with Respiratory Ventilation, Less than 24 Consecutive Hours, High Flow/Velocity Cannula (ICD-10-PCS; 2021-09-11)
DX: A41.9 Sepsis, unspecified organism (principal); J96.00 Acute respiratory failure, unspecified whether with hypoxia or hypercapnia; N17.0 Acute kidney failure with tubular necrosis; I50.30 Unspecified diastolic (congestive) heart failure; J18.9 Pneumonia, unspecified organism; I11.0 Hypertensive heart disease with heart failure; J44.0 Chronic obstructive pulmonary disease with (acute) lower respiratory infection; E87.1 Hypo-osmolality and hyponatremia; I48.91 Unspecified atrial fibrillation; E11.65 Type 2 diabetes mellitus with hyperglycemia; R65.20 Severe sepsis without septic shock; Z20.822 Contact with and (suspected) exposure to COVID-19; F15.10 Other stimulant abuse, uncomplicated; E78.5 Hyperlipidemia, unspecified; F17.210 Nicotine dependence, cigarettes, uncomplicated; G47.33 Obstructive sleep apnea (adult) (pediatric); Z79.01 Long term (current) use of anticoagulants; Z79.84 Long term (current) use of oral hypoglycemic drugs; Z79.899 Other long term (current) drug therapy; Z81.8 Family history of other mental and behavioral disorders; Z83.3 Family history of diabetes mellitus
CPT/HCPCS: 36410; 36415; 36600; 70450; 71045; 71250; 74176; 80048; 80053; 80061; 80162; 82803; 82948; 83036; 83605; 83735; 83880; 84145; 84484; 85008; 85018; 85025; 85610; 85730; 87040; 87077; 87081; 87186; 87502; 87503; 87635; 92508; 92616; 93005; 93308; 94640; 94760; 97161; 97530; 97535; 99291; C1751; C9803; G0378; J0282; J0456; J1160; J1650; J1815; J2543; J2930; J3370; J3490; J7030

== ENCOUNTER 2021-09-14 22:11 | Emergency (ER) | payer MEDICAID ==
[~2021-09-14 22:11] MED LIST changes: -ALBU18HF2 IH; +AMIO200T67 PO; +AMOX-580 PO; +APIX5TAB3 PO; +ATOR20TA66 PO; -BACI28.42 TOP; -BENZ-49 PO; +CARV-50 PO; -CEPH-571 PO; -CYCL-1 PO; -GENOO OP; -HYDR-4383 PO; -IBUP-1986 PO; +INSU100I31 SQ; -LISI10TA27 PO; +NEED-136; -NEOM10DR45 OT; +NICO-687 TD; +PRED20TA PO; -TRIA10.8
== END 2021-09-14 22:31 | disposition left against medical advice (07) ==
LOC: ER 22:14
DX: E11.65 Type 2 diabetes mellitus with hyperglycemia (principal); Z53.21 Procedure and treatment not carried out due to patient leaving prior to being seen by health care provider
CPT/HCPCS: 82948